=== PATIENT | female | born 2000 | race Caucasian/White ===

== ENCOUNTER → 2019-04-05 | Outpatient (CLI) | payer OTHER ==
--- NOTE | 2019-04-05 10:10 | USB ---
Reason for exam: clinical finding. History: Patient is nulliparous. Family history of breast cancer in maternal grandmother. Taking hormonal contraceptives for 6 years. Physical Findings: Nurse Summary: left breast palpable left lower outer quadrant 4o'clock 1 x 1cm, non-tender, movable (nurse ts). US Breast LT Left complete breast ultrasound includes all four quadrants, the retroareolar region and axilla. Finding demonstrates a 1.4 x 1.4 x 1.4cm lobular, solid, hypoechoic, taller than wide lesion at 3 o'clock. These results were verbally communicated with the patient and result sheet given to the patient on 04/05/19. ASSESSMENT: Suspicious, BI-RAD 4 RECOMMENDATION: Ultrasound core biopsy of the left breast. Called Dr. Maria's office with mammographic findings and has scheduled an appointment for the patient for 05/13/19 at 3:[address] Vargas. Biopsy scheduled for 05/16/19 at 12:20. PRELIMINARY REPORT CALLED AND FAXED TO DR. VARGAS ON 04/05/19.
== END | disposition home or self-care (01) ==
LOC: RADUSWWP 07:19
PROVIDERS: ATTEND Family Medicine
DX: N63.20 Unspecified lump in the left breast, unspecified quadrant (principal)

== ENCOUNTER → 2019-06-27 | Outpatient (CLI) | payer OTHER ==
[2019-06-27 09:42] VITALS: BP 119/77; PULSE 93; RESP 18; TEMP 98.2
--- NOTE | 2019-06-27 09:50 | P.PN ---
Subjective Progress Note Date: 06/27/19 Principal diagnosis: fiboradenoma Valentina is a 18 year old white female seen in consultation for Dr. Maria who noted a lump in her left breast on 04-05-19. She states about one month prior to that she felt tingling in her left breast and than did a breast self exam and noted the lump. She was not sure if it had increased in size. It was firm. It was not painful. An ultrasound was performed on . This revealed a 1.4 x 1.4 cm lobular solid hypoechoic tolerated and wide lesion at 3:00. Core biopsy was recommended. The lump did not change in size with her periods. The patient does not feel any lumps masses or nodules in her right breast. She is not complaining of any nipple discharge or skin changes. She has no history of any recent trauma or infection in the breast. She had an ultrasound core biopsy n 04-10-09. Pathology revealed a fibroadenoma. She was seen post biopsy on 04-18-19. Post biopsy was discussed with her that this was a benign lesion however it had increased in size and was painful and therefore the patient wished to be excised. The patient complains of a constant pain in the area of the fibroadenoma at approximately 3 or 4. She states that ice helps and that she is using Tylenol and Motrin. The pain radiates under her arm. There is no fluctuation with her periods. Caffeine: One to 3 coffees per week Nicotine: Negative Chocolate: Negative Family History: maternal grandmother: breast maternal grandfather: brain Maternal history: Menarche:9 G0 periods regular; LMP Mar.27 BCP: Hormonal nuvaring in place, BCP for 3 1/2 years hormones: no Surgical history: 1. two ankle right constructive surgeries 2. colonoscopy 3. laproscopic exam Medical history: None Social history: Smoke: Negative alcohol: Negative drugs: Negative - Constitutional Constitutional: Denies chills, Denies fever - EENT Eyes: denies blurred vision, denies pain Ears: deny: decreased hearing, tinnitus Ears, nose, mouth and throat: Denies headache, Denies sore throat - Breasts Breasts: bilateral: as per HPI - Cardiovascular Cardiovascular: Denies chest pain, Denies shortness of breath - Respiratory Respiratory: Denies cough, Denies 7 - Gastrointestinal Gastrointestinal: Denies abdominal pain, Denies diarrhea, Denies nausea, Denies vomiting - Genitourinary (Female) Genitourinary: Denies dysuria, Denies hematuria - Menstruation Comment: on control/releif of cramping Menstruation: Reports period normal - Musculoskeletal Musculoskeletal: Denies myalgias - Integumentary Integumentary: Denies pruritus, Denies rash - Neurological Neurological: Denies numbness, Denies weakness - Psychiatric Psychiatric: Denies anxiety, Denies depression - Endocrine Endocrine: Denies fatigue, Denies weight change - Hematologic/Lymphatic Comment: none - Allergic/Immunologic Allergic/Immunologic: Reports seasonal allergies Past Medical History History of Any Multi-Drug Resistant Organisms: None Reported Smoking Status: Never smoker Medications and Allergies Home Medications Medication Instructions Recorded Confirmed Type Cetirizine HCl [Zyrtec] 10 mg PO DAILY 04/05/19 04/05/19 History Etonogestrel/Ethinyl Estradiol 1 each VG CONTINUOUS 04/05/19 04/05/19 History [Nuvaring Vaginal Ring] Famotidine [Pepcid] 20 mg PO BID 04/05/19 04/05/19 History Montelukast [Singulair] 10 mg PO DAILY 04/05/19 04/05/19 History Allergies Allergy/AdvReac Type Severity Reaction Status Date / Time No Known Allergies Allergy Unverified 04/05/19 12:31 Objective - Vital Signs Vital signs: Vital Signs Temp 98.2 F 06/27/19 09:03 Pulse 93 06/27/19 09:03 Resp 18 06/27/19 09:03 BP 119/77 06/27/19 09:03 Pulse Ox 98 06/27/19 09:03 Intake & Output 06/26/19 06/27/19 06/27/19 18:59 06:59 18:59 Weight 70.307 kg - Exam BMI 27.5 - Constitutional General appearance: Present: average body habitus - EENT Eyes: Present: EOMI ENT: Present: hearing grossly normal - Neck Neck: Present: normal ROM - Respiratory Respiratory: bilateral: CTA - Cardiovascular Rhythm: regular Heart sounds: normal: S1, S2 - Gastrointestinal General gastrointestinal: Present: normal bowel sounds, soft - Integumentary Integumentary: Present: normal turgor - Musculoskeletal Musculoskeletal: Present: gait normal - Psychiatric Psychiatric: Present: A&O x's 3, appropriate affect, intact judgment & insight - Allied health notes Allied Health Notes Comment(s): breast exam: BRA 34DDD Inspection: no nipple changes of concern, no skin lesions of concern Palpation: Right breast: Multi-positional exam fibrocystic changes, no dominant masses or nodules of concern Right axilla: No adenopathy of concern Left breast: Multi-positional exam fibrocystic changes, increased nodularity at 4 o'clock position believed to be most likely consistent with fibroadenoma, it appears to be more fibrocystic changes in the upper outer quadrant region on the left than in the right breast, this area is tender to palpation Left axilla: No adenopathy of concern Assessment and Plan Assessment: Impression: 1. left breast symptomatic enlarging fibroadenoma 2. Fibrocystic breast changes 3. Mastodynia 4. patient has been on control for 7 years, and is now on a nuvaring for control of menstrual cramping and bleeding Plan: 1. Avoid caffeine 2. Needle local excisional biopsy of fibroadenoma left breast 3. Reassurance regarding mastodynia/book given to patient on breast pain 4. bilateral mammogram and breast ultrasound prior to surgery 5. appointment after radiographs The patient is a 18-year-old white female with a symptomatic enlarging left breast biopsy-proven fibroadenoma. I discussed with her that I do not believe that the pain will be resolved with removal of the fibroadenoma however she wishes it to be removed. She does have very fibrocystic breast changes and I believe the pain is likely related to that. She has been on control pills for 7 years. We have talked about a mammogram and the fact that this may be of poor diagnostic quality secondary to her dense breast however, prior to operative intervention we will obtain bilateral mammogram and a bilateral pleural breast ultrasounds as well. She will follow up after the radiographs. encounter 20 minutes, greater than 50% of time in planning and counselling Dr. Maria Time with Patient: Less than 30
== END | disposition home or self-care (01) ==
LOC: WWCWWP 08:45
PROVIDERS: ATTEND Surgery
DX: Z53.9 Procedure and treatment not carried out, unspecified reason (principal)

== ENCOUNTER → 2019-07-03 | Outpatient (CLI) | payer OTHER ==
--- NOTE | 2019-07-05 08:00 | MM ---
Reason for exam: additional evaluation requested from prior study. History: Patient is nulliparous. Family history of breast cancer in maternal grandmother. Benign US biopsy breast VAD LT of the left breast, April 10, 2019. Taking hormonal contraceptives for 6 years. Physical Findings: Nurse did not find any significant physical abnormalities on exam. MG Diagnostic Mammo w CAD GERRY Bilateral CC and MLO view(s) were taken. ML, spot compression CC, and spot compression MLO view(s) were taken of the right breast. The breast tissue is heterogeneously dense. This may lower the sensitivity of mammography. Finding: There is a 8 mm equal density (isodense) mass in the outer quadrant of the right breast. Previous mammotome biopsy in the left breast. Nodularity left upper outer breast biopsy proven fibroadenoma. These results were verbally communicated with the patient and result sheet given to the patient on 07/03/19. ASSESSMENT: Incomplete: need additional imaging evaluation, BI-RAD 0 RECOMMENDATION: Ultrasound of both breasts.
--- NOTE | 2019-07-05 08:01 | USB ---
Reason for exam: additional evaluation requested from abnormal screening. History: Patient is nulliparous. Family history of breast cancer in maternal grandmother. Benign US biopsy breast VAD LT of the left breast, April 10, 2019. Taking hormonal contraceptives for 6 years. US Breast BILAT Right complete breast ultrasound includes all four quadrants, the retroareolar region and axilla. Finding demonstrates no cystic or solid lesion seen. Left complete breast ultrasound includes all four quadrants, the retroareolar region and axilla. Finding demonstrates a 1.5 x 0.8 x 0.9cm irregular, solid, hypoechoic lesion at 4 o'clock. These results were verbally communicated with the patient and result sheet given to the patient on 07/03/19. ASSESSMENT: Benign, BI-RAD 2 RECOMMENDATION: Routine screening mammogram of both breasts at age 38.
== END | disposition home or self-care (01) ==
LOC: RADMAMWWP 13:00
PROVIDERS: ATTEND Surgery
DX: N64.4 Mastodynia (principal); N63.0 Unspecified lump in unspecified breast; Z80.3 Family history of malignant neoplasm of breast
CPT/HCPCS: 77066

== ENCOUNTER → 2020-02-07 | Outpatient (CLI) | payer OTHER ==
--- NOTE | 2020-02-10 08:42 | MM ---
Reason for exam: clinical finding. Last mammogram was performed 7 months ago. History: Patient is nulliparous. Family history of breast cancer in maternal grandmother. Benign US biopsy breast VAD LT of the left breast, April 10, 2019. Taking hormonal contraceptives for 6 years. Physical Findings: Nurse did not find any significant physical abnormalities on exam. MG Diagnostic Mammo RT w CAD CC and MLO view(s) were taken of the right breast. Prior study comparison: July 03, 2019, bilateral MG diagnostic mammo w CAD GERRY. The breast tissue is heterogeneously dense. This may lower the sensitivity of mammography. There is no discrete abnormality. No significant new findings when compared with previous films. These results were verbally communicated with the patient and result sheet given to the patient on 02/07/20. ASSESSMENT: Negative, BI-RAD 1 RECOMMENDATION: Routine screening mammogram of both breasts at age 33.
--- NOTE | 2020-02-10 08:44 | USB ---
Reason for exam: additional evaluation requested from abnormal screening. History: Patient is nulliparous. Family history of breast cancer in maternal grandmother. Benign US biopsy breast VAD LT of the left breast, April 10, 2019. Taking hormonal contraceptives for 6 years. US Breast RT Right complete breast ultrasound includes all four quadrants, the retroareolar region and axilla. Finding demonstrates no cystic or solid lesion seen. These results were verbally communicated with the patient and result sheet given to the patient on 02/07/20. ASSESSMENT: Negative, BI-RAD 1 RECOMMENDATION: Routine screening mammogram of both breasts at age 33.
== END | disposition home or self-care (01) ==
LOC: RADMAMWWP 14:18
PROVIDERS: ATTEND Surgery
DX: R92.8 Other abnormal and inconclusive findings on diagnostic imaging of breast (principal)
CPT/HCPCS: 77065